=== PATIENT | female | born 1985 | race Caucasian/White ===

== ENCOUNTER → 2020-03-10 16:02 | Outpatient (CLI) | payer SELFPAY ==
[2020-03-16 03:06] LABS: Age Gdln ACOG Testing 30-65 (.)
[2020-03-16 06:47] LABS: HPV APTIMA, High Risk Positive (Negative)
[2020-03-16 06:48] LABS: HPV Reflexed? NOT INDICATED
== END ==
PROVIDERS: Visit Provider Obstetrics & Gynecology
DX: Z12.4 Encounter for screening for malignant neoplasm of cervix (principal)
CPT/HCPCS: 88175; G0145

== ENCOUNTER → 2020-05-11 15:53 | Outpatient (CLI) | payer SELFPAY ==
--- NOTE | 2020-05-11 | CER_PTH ---
PATIENT: MAUREEN CAT LOC: [facility] U#:[id number] AGE/SX: 40/F ROOM: RE05/11/[address]: Dr. Trell Arora MD : 1985 BED: DIS: SPEC #: [id number] RECD: 05/11/20 15:36 STATUS: RHONDA TERRAZAS #: [id number] CARIN: 05/11/20 00:[address]: Trell Arora DEPT: SURGICAL PATHOLOGY RECD BY: Hemal Stevens Tissues: A - Uterine cervix, NOS B - Endocervical Procedures: Surgery Specimen Level IV HEADER OPERATION: Colposcopy PRE-OP DIAGNOSIS: R87.612, 87.810 TISSUE SUBMITTED: A - Four-quad cervical biopsy, B - [facility] MICROSCOPIC DIAGNOSIS A. Cervix, four-quad biopsy: Mild and focal moderate squamous dysplsia. HUEY I-II (HSIL). Mild chronic inflammation. See comment. B. Endocervix, curettings: Rare strips of benign superficial endocervix. No evidence of dysplasia. AM:margi 05/13/20 COMMENT A. Results from immunohistochemistry ([id number]) for surrogate HPV marker (p16) will be reported separately. Case has been reviewed in consultation with Dr. Kerr who concurs with the above diagnosis. IDC:[facility] MICROSCOPIC DESCRIPTION Slides are reviewed. GROSS DESCRIPTION A - Received in fixative is one container labeled with the patient's name and designated four quadrant cervix biopsy. The specimen consists of multiple irregular fragments of light herzog soft tissue that in aggregate measure 1 x 0.6 x 0.1 cm. The specimen is totally submitted in one cassette. B - Received in fixative is one container labeled with the patient's name and designated endocervix curettings. The specimen consists of reddish-herzog mucoid material aggregating to 1.5 x 1 x 0.1 cm. The specimen is totally submitted in one cassette. / AM:margi 05/12/20 TC:3 CPT: 18034 x2
--- NOTE | 2020-05-11 | IMM_PTH ---
PATIENT: MAUREEN CAT LOC: [facility] U#:[id number] AGE/SX: 40/F ROOM: RE05/11/[address]: Dr. Trell Arora MD : 1985 BED: DIS: SPEC #: [id number] RECD: 05/13/20 12:25 STATUS: RHONDA REHayder #: [id number] CARIN: 05/11/20 00:[address]: Trell Arora DEPT: IMMUNOHISTOCHEMISTRY RECD BY: Shelby Mcdonald Tissues: A - Uterine cervix, NOS Procedures: p16 (initial) KI-67 (add) PHYSICIAN & INSTITUTION [place] [id number] SPECIMEN INFORMATION: Tissue Source: A - Four-quad cervical biopsy Clinical Info: R87.612, R87.810 Specimen Number: [id number] CPT code: 47644, 16564 METHODOLOGY: Deparaffinized sections of prefer/formalin-fixed tissue or PAP/DQ stained slides are incubated with monoclonal/polyclonal antibodies/oligonucleotide probes. Localization is made via biotin free immunoperoxidase method. Appropriate controls are performed and reacted as expected. Results on target cell population are indicated in the following table: RESULTS: ANTIBODY / CLONE RESULT Block A P16 (E6H4) positive, focal, block-like Ki-67 (30-9) positive, low These tests were developed and their performance characteristics determined by [facility]. They may not have been cleared or approved by the [place]. Food and Drug Administration. The FDA has determined that such clearance or approval is not necessary. The above immunohistochemical/dualISH markers are ordered and reviewed by the Pathologist. INTERPRETATION: A. Four-quad cervical biopsy: Mild and focal moderate dysplasia, HUEY I-II (HSIL). AM:margi 05/16/20
== END ==
PROVIDERS: Referring Provider Obstetrics & Gynecology; Visit Provider Obstetrics & Gynecology
DX: R87.612 Low grade squamous intraepithelial lesion on cytologic smear of cervix (LGSIL) (principal); R87.810 Cervical high risk human papillomavirus (HPV) DNA test positive
CPT/HCPCS: 88305; 88341; 88342